=== PATIENT | male | born 1965 | race Caucasian/White ===

== ENCOUNTER → 2021-03-23 10:06 | Outpatient (CLI) | payer OTHER, SELFPAY ==
--- NOTE | ~2021-03-23 | CT_ITS ---
EXAMINATION: CT sinus wo con DATE: 03/23/2021 10:24 INDICATION: Chronic cough. History of Covid infection 1 month ago. TECHNIQUE: Computed tomography (CT) of the paranasal sinuses was performed without contrast. Iterativ e reconstruction technique was employed. Exam dose: 310.09 mGy-cm total exam DLP. COMPARISON: None FINDINGS: There is leftward deviation of the nasal septum. The middle and inferior nasal turbinates a re prominent bilaterally. The ostiomeatal units are patent bilaterally. There is slight mucosal thickening in the lower aspect of the left maxillary antrum. The paranasal si nuses otherwise are normally developed and aerated, without mucoperiosteal thickening, air-fluid leve l or soft tissue mass density. The mastoid air cells are normally developed and aerated bilaterally. Middle and inner ear apparatus appear normal bilaterally. IMPRESSION: Leftward deviation of nasal septum Minimal soft tissue thickening in the lower aspect of the left maxillary sinus Reviewed, dictated and finalized at [facility]. Reviewed, dictated and finalized at location B. R CHASER
--- NOTE | ~2021-03-23 | CT_ITS ---
EXAMINATION: CT soft tissue neck wo con DATE: 03/23/2021 10:24 INDICATION: Chronic cough. TECHNIQUE: Computed tomography (CT) of the neck was performed with 75 mL Omnipaque-350 intravenous co ntrast. Automated exposure control and iterative reconstruction technique were employed. The dose-nico gth product was 377.79 mGy-cm. COMPARISON: None FINDINGS: There is mild scarring at the lung apices. There are no pathologically enlarged lymph nodes . There is mild mucosal thickening in the paranasal sinuses. The mastoid air cells are normal. There is mild cervical spondylosis. IMPRESSION: 1. Mild scarring at the lung apices. Reviewed, dictated and finalized at location A. D PREVENTION ANALYST
== END ==
PROVIDERS: Visit Provider Family Medicine
DX: R05.3 Chronic cough (principal); J34.2 Deviated nasal septum
CPT/HCPCS: 70486; 70490

== ENCOUNTER 2023-12-14 11:30 | Outpatient (CLI) | payer OTHER, SELFPAY ==
--- NOTE | ~2023-12-14 | MR_ITS ---
Procedure: MR lumbar spine wo con Ordering provider: Shahana Gorman MD History: . Lumbar back pain . Comparison: None. Technique: MRI thoracic spine without contrast. FINDINGS: SPINAL CORD: Normal. The cord ends at the level of T12-L1. VERTEBRAL BODIES: Compression fracture is seen in L1 and L2 with edema seen in the bone marrow. Loss of height of L1 by about 20% is noted. No significant loss of height seen. Hemangioma seen in T11. Ot her vertebrae are unremarkable. DISK SPACES: Normal. STENOSIS: None. Mild diffuse disc bulge at the level of L4-L5 and L5-S1. PARASPINOUS SOFT TISSUES: Normal. IMPRESSION: Compression fractures of L1 and L2 with no retropulsed fragments. Reviewed, dictated and finalized at location A.
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
== END 2023-12-14 11:31 | disposition home or self-care (01) ==
LOC: MICIMG 11:31
PROVIDERS: PCP Family Medicine; Visit Provider Family Medicine
DX: M25.461 Effusion, right knee (principal); S83.411A Sprain of medial collateral ligament of right knee, initial encounter; X58.XXXA Exposure to other specified factors, initial encounter; S32.010A Wedge compression fracture of first lumbar vertebra, initial encounter for closed fracture; S32.020A Wedge compression fracture of second lumbar vertebra, initial encounter for closed fracture
CPT/HCPCS: 72148; 73721

== ENCOUNTER 2024-01-10 09:28 | Outpatient (CLI) | payer OTHER, SELFPAY ==
--- NOTE | ~2024-01-10 | MR_ITS ---
EXAMINATION: MR lumbar spine wo con DATE: 01/10/2024 10:27 INDICATION: Compression fracture TECHNIQUE: Magnetic resonance imaging (MRI) of the lumbar spine was performed without intravenous con trast. Sequences included sagittal T2-weighted FSE, sagittal T2-weighted FS FSE, sagittal T1-weighted FSE, and axial T2-weighted FSE. COMPARISON: 12/14/2023 FINDINGS: Alignment is normal. Again seen is chronic mild anterior wedging at T12 with 10-20% anterior vertebra l body height loss and mild underlying fibrofatty degenerative endplate change along the anterior sup erior endplate. No interval change in subacute compression fractures with mild marrow edema along the horizontal oriented linear low signal intensity fracture lines with 20% anterior vertebral body heig ht loss at L1 and 10% anterior vertebral body height loss at L2. Remaining vertebral body heights are normal with otherwise normal marrow signal throughout. No new fractures identified. Mild disc desicc ation and mild disc height loss at L4-L5. Mild disc desiccation without significant disc height loss at L2-L3. Mild disc height loss at T11-T12. The conus medullaris terminates at L1. There is normal si gnal in the caudal spinal cord. Paravertebral soft tissues are unremarkable. The following disc level s are specifically discussed: T12-L1: The disc does not extend beyond the endplate margin. There is mild bilateral facet joint oste oarthritis. There is no neural foraminal stenosis. There is no central canal stenosis. L1-L2: The disc does not extend beyond the endplate margin. There is mild bilateral facet joint osteo arthritis. There is no neural foraminal stenosis. There is no central canal stenosis. L2-L3: Disc is mildly bulging. There is mild right and minimal left facet joint osteoarthritis. There is mild bilateral neural foraminal stenosis. There is mild central canal stenosis. L3-L4: Disc is minimally bulging. There is mild right and minimal left facet joint osteoarthritis. Th ere is mild bilateral neural foraminal stenosis. There is no central canal stenosis. L4-L5: Disc is bulging. There is mild right and moderate left facet joint osteoarthritis. There is mi ld to moderate bilateral neural foraminal stenosis. There is mild central canal stenosis. L5-S1: The disc does not extend beyond the endplate margin. There is mild bilateral facet joint osteo arthritis. There is no neural foraminal stenosis. There is no central canal stenosis. IMPRESSION: 1. No interval change in subacute compression fractures of L1 and L2. 2. Mild lumbar spondylosis. Reviewed, dictated and finalized at location B. USER EXPERIENCE STRATEGIST
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
== END 2024-01-10 09:29 | disposition home or self-care (01) ==
PROVIDERS: PCP Family Medicine; Visit Provider Family Medicine
DX: S83.411D Sprain of medial collateral ligament of right knee, subsequent encounter (principal); S06.9X0D Unspecified intracranial injury without loss of consciousness, subsequent encounter; S32.010D Wedge compression fracture of first lumbar vertebra, subsequent encounter for fracture with routine healing; S32.020D Wedge compression fracture of second lumbar vertebra, subsequent encounter for fracture with routine healing; S22.42XD Multiple fractures of ribs, left side, subsequent encounter for fracture with routine healing; M43.06 Spondylolysis, lumbar region; V19.9XXD Pedal cyclist (driver) (passenger) injured in unspecified traffic accident, subsequent encounter
CPT/HCPCS: 70553; 72148; A9577

== ENCOUNTER 2025-01-27 11:52 | Outpatient (CLI) | payer OTHER, SELFPAY ==
--- NOTE | ~2025-01-27 | MR_ITS ---
EXAMINATION: MR foot RT wo con DATE: 01/27/2025 12:21 INDICATION: Right foot pain TECHNIQUE: Magnetic resonance imaging (MRI) of the right mid/hindfoot and ankle was performed without intravenous contrast. Sequences included sagittal T1- weighted FSE, sagittal fluid sensitive FSE STIR, coronal PD-weighted FS FSE, coronal T1-weighted FSE, axial PD-weighted FS FSE, and axial PD-weighted FSE. COMPARISON: None. FINDINGS: Medial ankle ligaments: Deep and superficial deltoid ligaments as well as the spring ligament are normal. Lateral ankle ligaments: The anterior and posterior inferior tibiofibular ligaments are normal. The anterior talofibular, calcaneofibular and posterior talofibular ligaments are normal. Tendons: Achilles tendon is normal. The peroneus longus and brevis tendons are normal. The tibialis anterior and extensor hallucis longus and extensor digitorum longus tendons are normal. The tibialis posterior, flexor digitorum longus and flexor hallucis longus tendons are normal. Plantar fascia: There is mild thickening and mild increased signal at the proximal aspect of the central and lateral components of the plantar aponeurosis. There is mild surrounding soft tissue edema and mild edema in the calcaneus underlying the footplate consistent with acute plantar fasciitis without tear. Bones/other: Bone alignment is normal. No fracture or pathologic marrow replacing process. Mild polyarticular osteoarthritis at the ankle, subtalar, talonavicular, calcaneocuboid, naviculocuneiform and a few tarsal metatarsal joints. There is associated focal degenerative subarticular edema-like signal change along the posterior medial rim of the talar dome and at the proximal articular surface of the medial cuneiform. Fluid: Physiologic amount fluid in the joint spaces. No bursitis, tenosynovitis or other abnormal fluid collections. IMPRESSION: 1. Mild plantar fasciitis without discrete tear. 2. 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 Reviewed, dictated and finalized at location A. RVENTIONAL TECHNOLOGIST
== END 2025-01-27 11:53 | disposition home or self-care (01) ==
LOC: MICIMG 11:53
PROVIDERS: PCP Family Medicine
DX: M72.2 Plantar fascial fibromatosis (principal); M19.071 Primary osteoarthritis, right ankle and foot
CPT/HCPCS: 73718